=== PATIENT | female | born 1990 | race Two or more races ===

== ENCOUNTER → 2020-02-01 07:00 | Outpatient (CLI) | payer OTHER ==
[~2020-02-01] VITALS: Ht 165.1 cm; Wt 113.4 kg
[~2020-02-01 07:00] MED LIST: SYNTHROID150 MCG PO
== END | disposition home or self-care (01) ==
LOC: LAB 07:00 → OB/GYN 02-06 10:00 → EDSTATUS 02-06 10:00 → LAB 03-24 07:16
PROVIDERS: ATTEND Obstetrics & Gynecology Obstetrics
DX: Z01.810 Encounter for preprocedural cardiovascular examination (principal); Z01.812 Encounter for preprocedural laboratory examination; N83.299 Other ovarian cyst, unspecified side

== ENCOUNTER 2020-06-05 12:10 | Inpatient (IN) | payer OTHER ==
[~2020-06-05] VITALS: Ht 152.4 cm; Wt 5.0 kg
[~2020-06-05 12:10] MED LIST changes: +IRON PO
[2020-06-06] MEDS ORDERED: LEVO-T200 MCG (08:23)
[2020-06-06] MEDS ORDERED: IRON236 MG (08:23)
== END 2020-06-07 17:53 | disposition home or self-care (01) | DRG 743 ==
LOC: CIR.AMB 12:10 → O/R 19:00 → SURH 19:00
PROVIDERS: ADMIT Obstetrics & Gynecology Obstetrics; ATTEND Obstetrics & Gynecology Obstetrics
PROC: 0UB00ZZ Excision of Right Ovary, Open Approach (ICD-10-PCS; principal; 2020-06-05 11:45)
DX: D27.0 Benign neoplasm of right ovary (principal); E03.8 Other specified hypothyroidism; E66.9 Obesity, unspecified

== ENCOUNTER 2020-06-15 21:12 | Inpatient (IN) | payer OTHER ==
[~2020-06-15] VITALS: Ht 165.1 cm; Wt 113.4 kg
[~2020-06-15 21:12] MED LIST changes: +IRON236 MG; +LEVO-T200 MCG
--- NOTE | 2020-06-15 21:21 | NUR ---
PTE REFIERE SE ABRIO LA CIRUGIA SE BEKA S/V YSE UBIAC ENAREA DE OBSERVACION
--- NOTE | 2020-06-15 21:33 | NUR ---
EVALUA PTE. SE EDUCA A A PTE SOBRE [place] MEDICO. PTE REFIERE COMPRENDER. SE REALIZAN MUESTRAS DE LABORATORIO BAJO MEDIDAS ASEPTICAS. SE ADMINISTRA IV'S Y MEDICAMENTOS JANENE ORDEN MEDICA.
--- NOTE | 2020-06-15 23:40 | NUR ---
SE RECIBE PTE DEL TURNO ANTERIOR, ALERTA Y ORIENTADA X 3 ESFERAS, UBICADA EN MAGALI NIVEL MAS BAJO, ATKINS DE IDENTIFICACION Y BARANDAS ELEVADAS POR PRECAUCION, EN COMPANIA DE FAMILIAR. SE OBSERVA CON BUEN PATRON RESPIRATORIO. IV PATENTE Y ROSHAN DE EDEMA O ERITEMA CON 0.9% NSS @150ML/HR. PENDIENTE A LECTURA DE CT.
--- NOTE | 2020-06-16 07:00 | NUR ---
PACIENTE FEMENINA ALERTA Y ORIENTADO CON BARANDAS ELEVEDAS. AREA DE VENOPUNCION EN ANTEBRAZO DERECHO SE OBSERVA AREA ROSHAN DE EDEMA Y ENROJECIMIENTO. PENDIENTE CONSULTA CON (ABDOMINAL WALL ABCESS). SE LE LASHAE EN TODO MOMENTO PRIVACIDAD Y SEGURIDAD.
== END 2020-06-21 12:31 | disposition home or self-care (01) | DRG 603 ==
LOC: ER 21:12 → OB/GYN 06-16 16:41
PROVIDERS: ADMIT Obstetrics & Gynecology Obstetrics; ATTEND Obstetrics & Gynecology Obstetrics
PROC: BW21ZZZ Computerized Tomography (CT Scan) of Abdomen and Pelvis (ICD-10-PCS; principal; 2020-06-16)
PROC: BW40ZZZ Ultrasonography of Abdomen (ICD-10-PCS; 2020-06-19)
DX: L02.211 Cutaneous abscess of abdominal wall (principal); Z98.891 History of uterine scar from previous surgery